=== PATIENT | male | born 1995 | race African-American/Black ===

== ENCOUNTER 2019-10-20 14:10 | Emergency (ER) | payer OTHER ==
[2019-10-20 14:15] VITALS: BP 136/75; PULSE 80; BMI 20.7
[2019-10-20] MEDS ORDERED: AZITHROMYCIN 250 MG TABLET PO ONE (15:01)
[2019-10-20] MEDS ORDERED: AZITHROMYCIN 250 MG TABLET ONE (15:03)
--- NOTE | 2019-10-20 15:05 | PDOC ---
History of Present Illness - General Chief Complaint: Urinary Problem Stated Complaint: URINARY PROBLEMS Time Seen by Provider: 10/20/19 14:48 History Source: Patient Exam Limitations: No Limitations - History of Present Illness Travel History: No Initial Comments: 10/20/19 15:04 HISTORY OF PRESENT ILLNESS: 24-year-old male denies medical history who presents emergency department for evaluation of penile discharge and dysuria starting this morning. Patient reports having oral and vaginal intercourse with 2 female partners over the past 2 months which he reports having barrier protection in place during vaginal penetration but not always during oral sex. He denies any testicular pain or abdominal pain. No recent travel or sick contacts. PAST MEDICAL HISTORY: Denies past medical history SURGICAL HISTORY: Denies ALLERGIES: No known drug allergies REVIEW OF SYSTEMS General/Constitutional: Denies fever or chills. Denies weakness, weight change. HEENT: Denies change in vision. Denies ear pain or discharge. Denies sore throat. Cardiovascular: Denies chest pain or shortness of breath. Respiratory: Denies cough, wheezing, or hemoptysis. Gastrointestinal: Denies nausea, vomiting, diarrhea or constipation. Denies rectal bleeding. Genitourinary: See HPI Musculoskeletal: Denies joint or muscle swelling or pain. Denies neck or back pain. Skin and breasts: Denies rash or easy bruising. Neurologic: Denies headache, vertigo, loss of consciousness, or loss of sensation. Psychiatric: Denies depression or anxiety. Endocrine: Denies increased thirst. Denies abnormal weight change. Hematologic/Lymphatic: Denies anemia, easy bleeding, or history of blood clots. Allergic/Immunologic: Denies hives or skin allergy. Denies latex allergy. PHYSICAL EXAM General Appearance: Well-appearing, appropriately dressed. No apparent distress, no intoxication. Gastrointestinal/Abdominal: Normal bowel sounds. Abdomen soft, non-distended. No tenderness or rebound tenderness. No organomegaly, pulsatile mass, guarding, hernia, hepatomegaly, splenomegaly. Lymphatic: No adenopathy, tenderness. Genital: Circumcised penis. Thick yellow discharge present from urinary meatus. Testicular exam is unremarkable. Past History - Medical History Allergies/Adverse Reactions: Allergies Allergy/AdvReac Type Severity Reaction Status Date / Time No Known Allergies Allergy Verified 10/20/19 14:15 COPD: No - Psycho-Social/Smoking History Smoking History: Current every day smoker Have you smoked in the past 12 months: No Information on smoking cessation initiated: Yes - Substance Abuse Hx (Audit-C & DAST Scrn) How often the patient has a drink containing alcohol: Never Score: In Men: 4 or > Positive; In Women: 3 or > Positive: 0 Screen Result (Pos requires Nsg. Audit-10AR): Negative In the last yr the pt used illegal drug/Rx for NonMed reason: No Score: Yes response is considered Positive: 0 Screen Result (Positive result requires Nsg. DAST-10): Negative *Physical Exam - Vital Signs Last Vital Signs Temp Pulse Resp BP Pulse Ox 80 17 136/75 100 10/20/19 14:13 10/20/19 14:13 10/20/19 14:13 10/20/19 14:13 Medical Decision Making - Medical Decision Making 10/20/19 15:02 A/P: 24-year-old male with penile discharge and dysuria starting this morning Thick yellow discharge from urinary meatus noted Remainder of genital exam is unremarkable As patient reports having oral and vaginal sex with 2 female partners over the past 2 months I will treat for gonorrhea chlamydia prophylactically. Patient is requesting syphilis and HIV testing. Urinalysis, urine culture, urine GC RPR with reflex HIV testing Ceftriaxone 2050 mg IM Azithromycin 1 g orally now Discharge home Discharge - Discharge Information Problems reviewed: Yes Clinical Impression/Diagnosis: Encounter for assessment of STD exposure Condition: Stable Disposition: HOME - Admission No - Follow up/Referral Referrals: Fabien Carrillo MD [Primary Care Provider] - - Patient Discharge Instructions Additional Instructions: You been treated today with azithromycin 1 g by mouth for treatment of presumed chlamydia You have been treated with Rocephin 250 mg injection for treatment of presumned gonorrhea The syphilis test, gonorrhea and chlamydia testing will not be completed for the next few days. You may call [phone] and leave message for return phone call with lab results. Be sure to be clear with your name, birthdate, and phone number Always use condoms with the partners Followup with [facility] or PMD in one week for reevaluation and retesting. - Post Discharge Activity
[2019-10-20 15:15] LABS: EPI CELLS 2 /uL (0-25.1); HYALINE CASTS 2 /uL (0-3.1); URINE APPEARANCE CLOUDY; URINE BACTERIA 223 /uL (0-1359); URINE BILIRUBIN NEGATIVE (NEGATIVE); URINE COLOR YELLOW; URINE GLUCOSE (UA) NEGATIVE (NEGATIVE); URINE KETONE 1+ (NEGATIVE); URINE LEUK ESTERASE 3+ (NEGATIVE); URINE NITRITE NEGATIVE (NEGATIVE); URINE PROTEIN TRACE (NEGATIVE); URINE RBC 120 /uL (0-23.9); URINE WBC 2042 /uL (0-25.8)
== END 2019-10-20 15:19 | disposition home or self-care (01) ==
LOC: JERFT 14:10
DX: R36.9 Urethral discharge, unspecified (principal); Z11.3 Encounter for screening for infections with a predominantly sexual mode of transmission
CPT/HCPCS: 36415; 81003; 86780; 87086; 87389; 87491; 87591; 99284-25